=== PATIENT | male | born 1960 | race African-American/Black ===

== ENCOUNTER 2016-06-24 02:44 | Inpatient (IN) | payer SELFPAY ==
[~2016-06-24] VITALS: Ht 190.5 cm; Wt 81.1 kg
[2016-06-24] MEDS ORDERED: ASPIRIN 81 MG TABLET CHEW ONE (03:10)
[2016-06-24] MEDS ORDERED: NITROGLYCERIN SINGLE TAB 0.4 MG SL ONE (03:10)
[2016-06-24] MEDS: NITROGLYCERIN SINGLE TAB 0.4 MG SL PRN ×2 (03:14→03:35)
[2016-06-24] MEDS ORDERED: SODIUM CHLORIDE FLUSH 10ML SYR IVF ONE (03:30)
[2016-06-24] MEDS ORDERED: ASPIRIN 81 MG TABLET CHEW PO ONE (03:30)
[2016-06-24 03:42] LABS: ASPARTATE AMINO TRANSFERASE 122 U/L (15-37); BLOOD UREA NITROGEN 11 mg/dL (7-18)
[2016-06-24 03:51] LABS: IS PT STATUS REG ER OR PRE ER? YES
[2016-06-24] MEDS ORDERED: OMNIPAQUE 350 MG/ML, 100ML BOTTLE ONE (04:18)
[2016-06-24] MEDS ORDERED: POLYETHYLENE GLYCOL 17 GM PACKET PO PRN (05:30)
[2016-06-24] MEDS ORDERED: morphine SULFATE 10 MG/ML, 1ML IVPush PRN (05:30)
[2016-06-24] MEDS ORDERED: NICOTINE 7 MG/24 HR PATCH.TD24 TD SCH (05:30)
[2016-06-24] MEDS ORDERED: ONDANSETRON 2MG/ML, 2ML IVPush PRN (05:30)
[2016-06-24] MEDS ORDERED: ENOXAPARIN 40 MG/0.4 ML SQ SCH (05:30)
[2016-06-24] MEDS ORDERED: HYDROcodone/APAP 5/325 TABLET PO PRN (05:30)
[2016-06-24] MEDS ORDERED: DOCUSATE 100 MG CAPSULE PO PRN (05:30)
[2016-06-24] MEDS ORDERED: ACETAMINOPHEN 325 MG TABLET PO PRN (05:30)
[2016-06-24] MEDS ORDERED: ENOXAPARIN 40 MG/0.4 ML ONE (07:20)
[2016-06-24 07:46] VITALS: BP 122/82
[2016-06-24 08:47] LABS: IS PT STATUS REG ER OR PRE ER? NO
[2016-06-24] MEDS ORDERED: SODIUM CHLORIDE FLUSH 3ML SYRINGE IVF SCH (09:00)
[2016-06-24 12:28] LABS: ACETAMINOPHEN < 2 mcg/mL (10-30)
[2016-06-24 13:41] VITALS: BP 135/87
[2016-06-24 14:50] LABS: DAU SCREEN DISCLAIMER
[2016-06-24] MEDS ORDERED: ATORVASTATIN 40 MG TABLET PO SCH (21:00)
== END 2016-06-24 15:14 | disposition left against medical advice (07) | DRG 302 ==
LOC: ED 05:11 → SUATTDRO 05:24 → EDIP 05:29 → 5SO 07:38
PROVIDERS: ADMIT Family Medicine; ATTEND Family Medicine
DX: I25.10 Atherosclerotic heart disease of native coronary artery without angina pectoris (principal); G92 Toxic encephalopathy; E44.0 Moderate protein-calorie malnutrition; F17.200 Nicotine dependence, unspecified, uncomplicated; D72.819 Decreased white blood cell count, unspecified; E87.6 Hypokalemia; Z68.22 Body mass index [BMI] 22.0-22.9, adult; Z71.6 Tobacco abuse counseling; Z86.73 Personal history of transient ischemic attack (TIA), and cerebral infarction without residual deficits
CPT/HCPCS: 36415; 70450; 71010; 71275; 80053; 80061; 80307; 80329; 81003; 82607; 83735; 83880; 84100; 84443; 84484; 85025; 85379; 93005; J1650; Q9967; G0480